=== PATIENT | male | born 1960 | race Caucasian/White ===

== ENCOUNTER → 2016-06-12 | Outpatient (CLI) | payer BC | LOC: CARDREHAB 07:35 | DX: R06.09 Other forms of dyspnea (principal); I10 Essential (primary) hypertension; E78.2 Mixed hyperlipidemia; Z82.49 Family history of ischemic heart disease and other diseases of the circulatory system; Z87.891 Personal history of nicotine dependence | CPT/HCPCS: A9500 ==

== ENCOUNTER → 2017-05-05 | Outpatient (CLI) | payer OTHER ==
[2017-05-05 07:19] LABS: EOS # 0.4 (0.04-0.40); HEMATOCRIT 46.4 % (42.0-52.0); HEMOGLOBIN 15.6 g/dL (13.5-18.0); LYMPH# 2.4 (1.50-4.00); MEAN CELL VOLUME 92 fl (78-100); MEAN CORPUSCULAR HEMOGLOBIN 31 pg (27-31); MEAN CORPUSCULAR HGB CONC 34 g/dL (33-37); MEAN PLATELET VOLUME 8.8 fl (7.4-10.4); MONO # 0.6 (0.20-0.80); NEU # 3.5 (1.40-6.50); PLATELET COUNT 234 K/mm3 (130-400); RED BLOOD COUNT 5.06 M/mm3 (4.20-5.60); RED CELL DISTRIBUTION WIDTH 12.8 % (11.5-14.5); WHITE BLOOD COUNT 6.9 K/mm3 (4.8-10.8)
[2017-05-05 07:26] LABS: EOS % 5.2 % (0.0-4.0)
[2017-05-05 07:29] LABS: ALBUMIN 4.3 g/dL (3.5-5.0); BUN/CREATININE RATIO 14.2 (6.0-26.0); CALCIUM 9.1 mg/dL (8.4-10.2); POTASSIUM 4.1 mmol/L (3.6-5.0); TOTAL BILIRUBIN 0.9 mg/dL (0.2-1.3)
== END ==
LOC: LAB 05-04 15:55
PROVIDERS: Nurse Practitioner Family
DX: E78.2 Mixed hyperlipidemia (principal); I10 Essential (primary) hypertension; E66.09 Other obesity due to excess calories

== ENCOUNTER → 2017-05-10 | Outpatient (CLI) | payer OTHER | LOC: LAB 16:37 | DX: Z00.00 Encounter for general adult medical examination without abnormal findings (principal); Z12.5 Encounter for screening for malignant neoplasm of prostate; Z88.8 Allergy status to other drugs, medicaments and biological substances ==

== ENCOUNTER → 2018-05-09 | Outpatient (CLI) | payer OTHER ==
[2018-05-09 07:43] LABS: ALBUMIN 4.2 g/dL (3.5-5.0); POTASSIUM 3.8 mmol/L (3.6-5.0); TOTAL PROTEIN 7.5 g/dL (6.3-8.2)
[2018-05-09 07:45] LABS: HEMATOCRIT 44.7 % (42.0-52.0); HEMOGLOBIN 15.6 g/dL (13.5-18.0); MEAN CELL VOLUME 90 fl (78-100); MEAN CORPUSCULAR HEMOGLOBIN 32 pg (27-31); MEAN CORPUSCULAR HGB CONC 35 g/dL (33-37); MEAN PLATELET VOLUME 8.9 fl (7.4-10.4); PLATELET COUNT 231 K/mm3 (130-400); RED BLOOD COUNT 4.95 M/mm3 (4.20-5.60); RED CELL DISTRIBUTION WIDTH 12.3 % (11.5-14.5); WHITE BLOOD COUNT 6.3 K/mm3 (4.8-10.8)
[2018-05-09 08:32] LABS: BAND 2 % (0-10); LYMPHOCYTE 33 % (20-51); MONOCYTE 8 % (3-10); NEUTROPHILS 51 % (42-75)
== END ==
LOC: LAB 07:07
PROVIDERS: Family Medicine
DX: Z12.5 Encounter for screening for malignant neoplasm of prostate (principal); Z00.00 Encounter for general adult medical examination without abnormal findings; I10 Essential (primary) hypertension; E78.2 Mixed hyperlipidemia; E66.9 Obesity, unspecified

== ENCOUNTER → 2019-03-06 | Day surgery (SDC) | payer OTHER | LOC: MSO 06:55 | DX: K42.9 Umbilical hernia without obstruction or gangrene (principal); I10 Essential (primary) hypertension; G47.33 Obstructive sleep apnea (adult) (pediatric); Z88.8 Allergy status to other drugs, medicaments and biological substances | CPT/HCPCS: 00830; C1781; J0690; J2704; J3010; J7120 ==

== ENCOUNTER → 2019-03-24 | Outpatient (CLI) | payer OTHER ==
[2019-03-24 13:26] LABS: HEMATOCRIT 44.6 % (42.0-52.0); HEMOGLOBIN 14.9 g/dL (13.5-18.0); MEAN PLATELET VOLUME 8.1 fl (7.4-10.4); RED BLOOD COUNT 4.97 M/mm3 (4.20-5.60); RED CELL DISTRIBUTION WIDTH 12.2 % (11.5-14.5); WHITE BLOOD COUNT 7.6 K/mm3 (4.8-10.8)
[2019-03-24 13:36] LABS: POTASSIUM 4.5 mmol/L (3.5-5.1)
[2019-03-24 13:38] LABS: CALCIUM 9.8 mg/dL (8.3-10.5)
== END ==
LOC: RAD 13:11
PROVIDERS: Surgery
DX: T81.49XA Infection following a procedure, other surgical site, initial encounter (principal)
CPT/HCPCS: Q9967

== ENCOUNTER → 2019-05-09 | Outpatient (CLI) | payer OTHER ==
[2019-05-09 07:23] LABS: ALBUMIN 4.2 g/dL (3.5-5.0); POTASSIUM 4.2 mmol/L (3.5-5.1)
[2019-05-09 07:25] LABS: TOTAL PROTEIN 7.2 g/dL (6.4-8.3)
[2019-05-09 07:27] LABS: BASO # 0.1 (0.02-0.10); EOS # 0.4 (0.04-0.40); HEMATOCRIT 42.6 % (42.0-52.0); HEMOGLOBIN 14.5 g/dL (13.5-18.0); LYMPH# 2.5 (1.50-4.00); MEAN CELL VOLUME 90 fl (78-100); MEAN CORPUSCULAR HEMOGLOBIN 31 pg (27-31); MEAN CORPUSCULAR HGB CONC 34 g/dL (33-37); MEAN PLATELET VOLUME 8.7 fl (7.4-10.4); MONO # 0.6 (0.20-0.80); NEU # 2.5 (1.40-6.50); PLATELET COUNT 223 K/mm3 (130-400); RED BLOOD COUNT 4.73 M/mm3 (4.20-5.60); TOTAL BILIRUBIN 0.6 mg/dL (0.2-1.2)
== END ==
LOC: LAB 07:01
PROVIDERS: Family Medicine
DX: Z00.00 Encounter for general adult medical examination without abnormal findings (principal); Z12.5 Encounter for screening for malignant neoplasm of prostate; I10 Essential (primary) hypertension; E78.2 Mixed hyperlipidemia; E66.09 Other obesity due to excess calories

== ENCOUNTER → 2019-05-12 | Outpatient (CLI) | payer OTHER | LOC: AMSURD 09:14 | DX: R00.2 Palpitations (principal) ==

== ENCOUNTER → 2019-06-24 | Outpatient (CLI) | payer OTHER ==
[~2019-06-24] VITALS: Ht 185.4 cm; Wt 118.2 kg
[~2019-06-24] MED LIST: AMLODIPINE BESYL5 MG PO; AUGMENTIN 875-1 EAC1 PO; BACTRIM DS TAB1 EACH PO; C-10001000 MG PO; GLUCOSAMINE & C1 CA2 PO; LIPITOR 10M10 MG/TAB PO; MELOXICAM15 MG PO; MULTIVITAMIN1 SGL PO; NAPROXEN250 M2 PO; TYLENOL325 M1 PO
[2019-06-24 13:06] VITALS: BP 164/81
[2019-06-24 13:07] LABS: EOS % 0.1 % (0.0-4.0); HEMATOCRIT 48.5 % (42.0-52.0); HEMOGLOBIN 16.4 g/dL (13.5-18.0); LYMPH# 2.1 (1.50-4.00); MEAN CELL VOLUME 92 fl (78-100); MEAN CORPUSCULAR HEMOGLOBIN 31 pg (27-31); MEAN CORPUSCULAR HGB CONC 34 g/dL (33-37); MEAN PLATELET VOLUME 8.4 fl (7.4-10.4); PLATELET COUNT 276 K/mm3 (130-400); RED BLOOD COUNT 5.27 M/mm3 (4.20-5.60); RED CELL DISTRIBUTION WIDTH 13.4 % (11.5-14.5); WHITE BLOOD COUNT 19.9 K/mm3 (4.8-10.8)
[2019-06-24 13:17] LABS: ALBUMIN 4.5 g/dL (3.5-5.0); POTASSIUM 3.7 mmol/L (3.5-5.1)
[2019-06-24 13:18] LABS: CALCIUM 9.9 mg/dL (8.3-10.5)
[2019-06-24 13:20] LABS: TOTAL PROTEIN 8.1 g/dL (6.4-8.3)
[2019-06-24 13:21] LABS: TOTAL BILIRUBIN 1.6 mg/dL (0.2-1.2)
[2019-06-24 13:23] LABS: MONO # 1.6 (0.20-0.80)
[2019-06-24 14:34] VITALS: BP 153/63
== END ==
LOC: LAB 12:51
PROVIDERS: Nurse Practitioner Primary Care
DX: L03.90 Cellulitis, unspecified (principal)
CPT/HCPCS: J1885; J2543; J7030

== ENCOUNTER → 2019-06-25 | Outpatient (CLI) | payer OTHER ==
[2019-06-24 14:34] VITALS: BP 153/63
[2019-06-25 13:15] LABS: EOS # 0.1 (0.04-0.40); EOS % 0.4 % (0.0-4.0); HEMATOCRIT 44.3 % (42.0-52.0); HEMOGLOBIN 14.7 g/dL (13.5-18.0); LYMPH# 1.8 (1.50-4.00); MEAN CELL VOLUME 93 fl (78-100); MEAN CORPUSCULAR HEMOGLOBIN 31 pg (27-31); MEAN CORPUSCULAR HGB CONC 33 g/dL (33-37); MEAN PLATELET VOLUME 8.2 fl (7.4-10.4); MONO # 1.3 (0.20-0.80); NEU # 12.9 (1.40-6.50); PLATELET COUNT 272 K/mm3 (130-400); RED BLOOD COUNT 4.77 M/mm3 (4.20-5.60); RED CELL DISTRIBUTION WIDTH 13.4 % (11.5-14.5); WHITE BLOOD COUNT 16.2 K/mm3 (4.8-10.8)
== END ==
LOC: LAB 12:58
PROVIDERS: Nurse Practitioner Primary Care
DX: L03.90 Cellulitis, unspecified (principal)

== ENCOUNTER → 2019-11-20 | Outpatient (CLI) | payer OTHER ==
[2019-06-24 14:34] VITALS: BP 153/63
== END ==
LOC: LAB 07:44
DX: L03.111 Cellulitis of right axilla (principal); L73.2 Hidradenitis suppurativa

== ENCOUNTER → 2020-08-05 | Outpatient (CLI) | payer BC ==
[2019-06-24 14:34] VITALS: BP 153/63
[2020-08-05 15:32] LABS: EOS # 0.3 (0.04-0.40); EOS % 4.8 % (0.0-4.0); HEMATOCRIT 44.6 % (42.0-52.0); HEMOGLOBIN 15.1 g/dL (13.5-18.0); LYMPH# 2.3 (1.50-4.00); MEAN CELL VOLUME 92 fl (78-100); MEAN CORPUSCULAR HEMOGLOBIN 31 pg (27-31); MEAN CORPUSCULAR HGB CONC 34 g/dL (33-37); MEAN PLATELET VOLUME 8.5 fl (7.4-10.4); MONO # 0.8 (0.20-0.80); NEU # 3.4 (1.40-6.50); PLATELET COUNT 224 K/mm3 (130-400); RED BLOOD COUNT 4.86 M/mm3 (4.20-5.60); RED CELL DISTRIBUTION WIDTH 12.6 % (11.5-14.5); WHITE BLOOD COUNT 6.9 K/mm3 (4.8-10.8)
[2020-08-05 15:43] LABS: ALBUMIN 4.2 g/dL (3.5-5.0)
[2020-08-05 15:45] LABS: TOTAL PROTEIN 7.3 g/dL (6.4-8.3)
[2020-08-05 15:47] LABS: TOTAL BILIRUBIN 1.1 mg/dL (0.2-1.2)
== END ==
LOC: LAB 15:22
PROVIDERS: Family Medicine
DX: I10 Essential (primary) hypertension (principal); E78.2 Mixed hyperlipidemia

== ENCOUNTER → 2021-01-31 | Outpatient (CLI) | payer BC | LOC: RAD 12:19 | DX: M25.562 Pain in left knee (principal) ==

== ENCOUNTER → 2021-03-14 | Outpatient (CLI) | payer BC | LOC: LAB 18:39 | DX: Z20.822 Contact with and (suspected) exposure to COVID-19 (principal) ==

== ENCOUNTER → 2021-07-25 | Outpatient (CLI) | payer BC | LOC: LAB 13:53 | DX: A49.02 Methicillin resistant Staphylococcus aureus infection, unspecified site (principal); M25.562 Pain in left knee ==

== ENCOUNTER 2021-08-15 08:50 | Outpatient (RCR) | payer BC | END 2021-08-16 | disposition still patient (30) | LOC: PT | DX: M25.562 Pain in left knee (principal); Z98.890 Other specified postprocedural states ==

== ENCOUNTER 2021-08-18 14:15 | Outpatient (RCR) | payer BC | END 2021-09-16 | disposition still patient (30) | LOC: PT | DX: M25.562 Pain in left knee (principal); Z96.652 Presence of left artificial knee joint ==

== ENCOUNTER → 2021-10-27 | Outpatient (CLI) | payer BC | LOC: VAS 14:58 → RAD 15:30 | DX: M17.12 Unilateral primary osteoarthritis, left knee (principal) ==

== ENCOUNTER → 2021-10-31 | Outpatient (CLI) | payer BC | LOC: RAD 12:41 | DX: K40.20 Bilateral inguinal hernia, without obstruction or gangrene, not specified as recurrent (principal); M17.12 Unilateral primary osteoarthritis, left knee; I83.892 Varicose veins of left lower extremity with other complications; I72.4 Aneurysm of artery of lower extremity | CPT/HCPCS: Q9967 ==

== ENCOUNTER → 2022-01-15 | Outpatient (CLI) | payer BC | LOC: AMSURD 12:02 → RAD 12:02 | DX: Z01.818 Encounter for other preprocedural examination (principal) ==

== ENCOUNTER → 2022-02-09 | Outpatient (CLI) | payer BC | LOC: LAB 11:19 | DX: Z01.89 Encounter for other specified special examinations (principal) ==

== ENCOUNTER → 2022-06-01 | Outpatient (CLI) | payer BC | LOC: RAD 13:52 | DX: R10.9 Unspecified abdominal pain (principal) ==

== ENCOUNTER → 2023-06-09 | Outpatient (CLI) | payer BC ==
[2023-06-09 07:22] LABS: BASO # 0.03 K/mm3 (0.02-0.10); EOS # 0.36 K/mm3 (0.04-0.40); EOS % 5.4 % (0.0-4.0); HEMATOCRIT 43.3 % (42.0-52.0); HEMOGLOBIN 14.8 g/dL (13.5-18.0); LYMPH# 2.24 K/mm3 (1.50-4.00); MEAN CELL VOLUME 92 fl (78-100); MEAN CORPUSCULAR HEMOGLOBIN 32 pg (27-31); MEAN CORPUSCULAR HGB CONC 34 g/dL (33-37); MEAN PLATELET VOLUME 8.5 fl (7.4-10.4); MONO # 0.67 K/mm3 (0.20-0.80); NEU # 3.36 K/mm3 (1.40-6.50); PLATELET COUNT 219 K/mm3 (130-400); RED BLOOD COUNT 4.69 M/mm3 (4.20-5.60); RED CELL DISTRIBUTION WIDTH 11.9 % (11.5-14.5); WHITE BLOOD COUNT 6.7 K/mm3 (4.8-10.8)
[2023-06-09 07:30] LABS: ALBUMIN 4.3 g/dL (3.4-4.8); SODIUM 140 mmol/L (136-145)
[2023-06-09 07:31] LABS: CALCIUM 9.5 mg/dL (8.3-10.5)
[2023-06-09 07:32] LABS: TOTAL PROTEIN 7.4 g/dL (6.2-8.1)
[2023-06-09 07:33] LABS: CARBON DIOXIDE 23 mmol/L (23-31); GLUCOSE 96 mg/dL (75-110)
[2023-06-09 07:34] LABS: TOTAL BILIRUBIN 1.4 mg/dL (0.2-1.2)
[2023-06-09 07:38] LABS: AST-SGOT 30 U/L (5-34)
[2023-06-09 07:39] LABS: ALT/SGPT 32 U/L (0-55)
[2023-06-09 07:45] LABS: D-DIMER 1.91 mg/L FEU (0.15-0.50)
[2023-06-09 07:51] LABS: TROPONIN-I < 0.030 ng/mL (0.00-0.033)
== END ==
LOC: LAB 07:05
PROVIDERS: Nurse Practitioner Family
DX: Z12.5 Encounter for screening for malignant neoplasm of prostate (principal); R06.00 Dyspnea, unspecified; E78.2 Mixed hyperlipidemia; I10 Essential (primary) hypertension; Z68.37 Body mass index [BMI] 37.0-37.9, adult

== ENCOUNTER → 2023-06-14 | Outpatient (CLI) | payer BC | LOC: RAD 09:01 | DX: R79.1 Abnormal coagulation profile (principal) ==

== ENCOUNTER → 2023-10-08 | Outpatient (CLI) | payer BC ==
[~2023-10-08] MED LIST changes: +Gadoterate 20 ML VIAL IV ONE
== END ==
LOC: RAD 12:07
DX: R47.01 Aphasia (principal)
CPT/HCPCS: A9575

== ENCOUNTER → 2023-12-29 | Outpatient (CLI) | payer BC ==
[~2023-12-29] MED LIST changes: -Gadoterate 20 ML VIAL IV ONE
== END ==
LOC: RAD 08:18
DX: K40.90 Unilateral inguinal hernia, without obstruction or gangrene, not specified as recurrent (principal)